=== PATIENT | female | born 1985 | race Caucasian/White ===

== ENCOUNTER 2016-12-14 15:17 | Emergency (ER) | payer MEDICAID, OTHER ==
[2016-12-14] MEDS ORDERED: 0.9 % SODIUM CHLORIDE 1,000 ML BAG IV ONE (16:03)
[2016-12-14 16:26] LABS: BASO % 0.8 % (0-6); EOS % 4.2 % (0-6); GRAN % 53.2 % (47-80); HEMATOCRIT 36.1 % (35.0-47.0); LYMPH % 32.6 % (16-45); MEAN CELL VOLUME 93.8 fl (81-97); MEAN CORPUSCULAR HEMOGLOBIN 31.2 pg (27-33); MEAN CORPUSCULAR HGB CONC 33.2 g/dl (32-36); MEAN PLATELET VOLUME 11.1 fl (7.4-10.4); MONO % 9.2 % (0-9); PLATELET COUNT 145 K/uL (130-400); RED BLOOD COUNT 3.85 M/uL (3.80-5.40); RED CELL DISTRIBUTION WIDTH 11.7 % (11.5-14.5); URINE APPEARANCE CLEAR; URINE BILIRUBIN NEGATIVE (NEGATIVE); URINE BLOOD NEGATIVE (NEGATIVE); URINE COLOR YELLOW; URINE GLUCOSE (UA) NEGATIVE (NEGATIVE); URINE KETONE NEGATIVE (NEGATIVE); URINE LEUKOCYTE ESTERASE NEGATIVE (NEGATIVE); URINE NITRITE NEGATIVE (NEGATIVE); URINE PROTEIN NEGATIVE (NEGATIVE); URINE UROBILINOGEN 0.2 E.U./dL (0.20 - 1.00); WHITE BLOOD COUNT W/O DIFF 5.2 K/uL (4.2-12.2)
--- NOTE | 2016-12-14 16:33 | Emergency Department Record ---
History of Present Illness - General Source: Patient Mode of Arrival: Ambulatory Limitations: No limitations - History of Present Illness Initial Comments: pt has rlq ap. she stated she was pushing a couch a week ago and felt a pop in lower abd. pt thought she felt a bulge as well. she has had increased pain ever since MD Complaint: Abdominal pain Onset/Timin -: Week(s) Location: LLQ, RLQ Radiation: None Migration to: No migration Quality: Burning Consistency: Constant Improves With: Nothing Worsens With: Movement Associated Symptoms: Nausea, Vomiting - Related Data Patient : No <Francesca Beltran - Last Filed: 12/14/16 18:00> <Catracho Lofton - Last Filed: 12/14/16 19:30> - General Chief Complaint: Abdominal Pain Stated Complaint: LOW ABD PAIN Time Seen by Provider: 12/14/16 15:54 - Related Data Home Medications Medication Instructions Recorded Confirmed Last Taken Pregabalin [Lyrica] 75 mg PO BID 12/14/16 12/14/16 Unknown Allergies Allergy/AdvReac Type Severity Reaction Status Date / Time codeine Allergy NAUSEA AND Verified 12/14/16 15:33 VOMITING ketorolac tromethamine Allergy HIVES Verified 12/14/16 15:33 [From Toradol] Penicillins Allergy RASH Verified 12/14/16 15:33 Travel Screening - Travel/Exposure Within Last 30 Days Have you traveled within the last 30 days?: No <Francesca Beltran - Last Filed: 12/14/16 18:00> Review of Systems Reviewed: No additional complaints except as noted below Constitutional: Reports: As per HPI. Denies: Chills, Fever, Malaise, Night sweats, Weakness, Weight change Eyes: Reports: As per HPI. Denies: Eye discharge, Eye pain, Photophobia, Vision change ENT: Reports: As per HPI. Denies: Congestion, Dental pain, Ear pain, Epistaxis , Hearing loss, Throat pain Respiratory: Reports: As per HPI. Denies: Cough, Dyspnea, Hemoptysis, Stridor, Wheezes Cardiovascular: Reports: As per HPI. Denies: Arrhythmia, Chest pain, Dyspnea on exertion, Edema, Murmurs, Orthopnea, Palpitations, Paroxysmal nocturnal dyspnea, Rheumatic Fever, Syncope Endocrine: Reports: As per HPI. Denies: Fatigue, Heat or cold intolerance, Polydipsia, Polyuria Gastrointestinal: Reports: As per HPI. Denies: Abdominal pain, Constipation, Diarrhea, Hematemesis, Hematochezia, Melena, Nausea, Vomiting Genitourinary: Reports: As per HPI. Denies: Abnormal menses, Discharge, Dyspareunia, Dysuria, Frequency, Hematuria, Incontinence, Retention, Urgency Musculoskeletal: Reports: As per HPI. Denies: Arthralgia, Back pain, Gout, Joint swelling, Myalgia, Neck pain Skin: Reports: As per HPI. Denies: Bruising, Change in color, Change in hair/ nails, Lesions, Pruritus, Rash Neurological: Reports: As per HPI. Denies: Abnormal gait, Confusion, Headache, Numbness, Paresthesias, Seizure, Tingling, Tremors, Vertigo, Weakness Psychiatric: Reports: As per HPI. Denies: Anxiety, Auditory hallucinations, Depression, Homicidal thoughts, Suicidal thoughts, Visual hallucinations Hematological/Lymphatic: Reports: As per HPI. Denies: Anemia, Blood Clots, Easy bleeding, Easy bruising, Swollen glands <Francesca Beltran - Last Filed: 12/14/16 18:00> Past Medical History - SOCIAL HISTORY Smoking Status: Former smoker Alcohol Use: None Drug Use: None - RESPIRATORY Hx Respiratory Disorders: Yes Hx Asthma: Yes - CARDIOVASCULAR Hx Cardio Disorders: No - NEURO Hx Neuro Disorders: No - GI Hx GI Disorders: No - Hx Genitourinary Disorders: Yes Comment:: endometriosis - ENDOCRINE Hx Endocrine Disorders: No Hx Diabetes: No Hx Thyroid Disease: No - MUSCULOSKELETAL Hx Musculoskeletal Disorders: No - PSYCH Hx Psych Problems: No - HEMATOLOGY/ONCOLOGY Hx Hematology/Oncology Disorders: Yes Hx Cancer: Yes (cancerous cells in uterus) <Francesca Beltran - Last Filed: 12/14/16 18:00> Family Medical History Any Significant Family History?: Yes Hx Cancer: Mother <Francesca Beltran - Last Filed: 12/14/16 18:00> Physical Exam - General General Appearance: Alert, Oriented x3, Cooperative, Mild distress - Head Head exam: Normal inspection - Eye Eye exam: Normal appearance, PERRL, EOMI Pupils: Normal accommodation - ENT ENT exam: Normal exam, Mucous membranes moist, Normal external ear exam, Normal orophraynx, TM's normal bilaterally Ear exam: Normal external inspection. negative: External canal tenderness Nasal Exam: Normal inspection. negative: Discharge, Sinus tenderness Mouth exam: Normal external inspection, Tongue normal Teeth exam: Normal inspection. negative: Dental caries Throat exam: Normal inspection. negative: Tonsillar erythema, Tonsillar exudate - Neck Neck exam: Normal inspection, Full ROM. negative: Tenderness - Respiratory Respiratory exam: Normal lung sounds bilaterally. negative: Respiratory distress - Cardiovascular Cardiovascular Exam: Regular rate, Normal rhythm, Normal heart sounds - GI/Abdominal GI/Abdominal exam: Soft, Normal bowel sounds, Tenderness - Rectal Rectal exam: Deferred - exam: Deferred - Extremities Extremities exam: Normal inspection, Full ROM, Normal capillary refill. negative: Tenderness - Back Back exam: Reports: Normal inspection, Full ROM. Denies: Muscle spasm, Rash noted, Tenderness - Neurological Neurological exam: Alert, CN II-XII intact, Normal gait, Oriented X3 - Psychiatric Psychiatric exam: Normal affect, Normal mood - Skin Skin exam: Dry, Intact, Normal color, Warm <Francesca Beltran - Last Filed: 12/14/16 18:00> Course Vital Signs 12/14/16 15:28 Temperature 98.6 F Pulse Rate 77 Respiratory 20 Rate Blood Pressure 121/60 Pulse Ox 100 - Reevaluation(s) Reevaluation #1: 12/14/16 17:[address] over to [address] lofton <Francesca Beltran - Last Filed: 12/14/16 18:00> Vital Signs 12/14/16 12/14/16 12/14/16 15:28 17:19 19:05 Temperature 98.6 F 97.8 F Pulse Rate 77 Pulse Rate [ 68 73 Pulse Ox Probe] Respiratory 20 16 18 Rate Blood Pressure 121/60 Blood Pressure 118/76 122/69 [Right Arm] Pulse Ox 100 98 - Reevaluation(s) Reevaluation #2: The patient is doing very well at this time. She is resting comfortably with no discomfort and is dressed and ready for home. I did explain to her the CT was normal and the patient is instructed to see her PCP next week for recheck. 12/14/16 19:29 <Catracho Lofton - Last Filed: 12/14/16 19:30> Medical Decision Making - Lab Data Result diagrams: 12/14/16 16:22 12/14/16 16:22 Lab Results 12/14/16 Range/Units 16:22 WBC 5.2 (4.2-12.2) K/uL RBC 3.85 (3.80-5.40) M/uL Hgb 12.0 (11.6-16.0) gm/dl Hct 36.1 (35.0-47.0) % MCV 93.8 (81-97) fl MCH 31.2 (27-33) pg MCHC 33.2 (32-36) g/dl RDW 11.7 (11.5-14.5) % Plt Count 145 (130-400) K/uL MPV 11.1 H (7.4-10.4) fl Gran % 53.2 (47-80) % Lymphocytes % 32.6 (16-45) % Monocytes % 9.2 H (0-9) % Eosinophils % 4.2 (0-6) % Basophils % 0.8 (0-6) % <Francesca Beltran - Last Filed: 12/14/16 18:00> - Data Complexity MDM Data: X-Ray Ordered and/or Reviewed - Lab Data Result diagrams: 12/14/16 16:22 12/14/16 16:22 Lab Results 12/14/16 12/14/16 12/14/16 Range/Units 16:22 16:22 16:22 WBC 5.2 (4.2-12.2) K/uL RBC 3.85 (3.80-5.40) M/uL Hgb 12.0 (11.6-16.0) gm/dl Hct 36.1 (35.0-47.0) % MCV 93.8 (81-97) fl MCH 31.2 (27-33) pg MCHC 33.2 (32-36) g/dl RDW 11.7 (11.5-14.5) % Plt Count 145 (130-400) K/uL MPV 11.1 H (7.4-10.4) fl Gran % 53.2 (47-80) % Lymphocytes % 32.6 (16-45) % Monocytes % 9.2 H (0-9) % Eosinophils % 4.2 (0-6) % Basophils % 0.8 (0-6) % Sodium 139 (136-145) mmol/L Potassium 3.4 L (3.5-5.1) mmol/L Chloride 108 H (98-107) mmol/L Carbon Dioxide 25.2 (22-30) mmol/L Anion Gap 5.8 L (7-16) BUN 5 L (7-17) mg/dL Creatinine 0.7 (0.52-1.04) mg/dL Estimated GFR > 60 ml/min Random Glucose 89 (70-110) mg/dL Calcium 9.0 (8.5-10.1) mg/dL Urine Color Yellow Urine Appearance Clear Urine pH 6.0 (5.0-8.0) Ur Specific [place] 1.025 (1.002-1.030) Urine Protein Negative (NEGATIVE) Urine Glucose (UA) Negative (NEGATIVE) Urine Ketones Negative (NEGATIVE) Urine Blood Negative (NEGATIVE) Urine Nitrite Negative (NEGATIVE) Urine Bilirubin Negative (NEGATIVE) Urine Urobilinogen 0.2 (0.20 - 1.00) E.U./dL Ur Leukocyte Esterase Negative (NEGATIVE) - Radiology Data Radiology results: Report reviewed (Abd CT: Neg.) <Catracho Lofton - Last Filed: 12/14/16 19:30> Disposition <Francesca Beltran - Last Filed: 12/14/16 18:00> Disposition: Discharge Time of Disposition: 19:29 <Catracho Lofton - Last Filed: 12/14/16 19:30> Clinical Impression: RLQ abdominal pain Disposition: Home, Self-Care Condition: (2) Stable Instructions: Abdominal Pain (ED) Additional Instructions: Please take Tylenol or Motrin for pain. Rest with no heavy lifting for 3 days. Please see your PCP if not better in 3 days and return to the ER if worse.
[2016-12-14 16:39] LABS: ANION GAP 5.8 (7-16); BLOOD UREA NITROGEN 5 mg/dL (7-17); CARBON DIOXIDE 25.2 mmol/L (22-30); CREATININE 0.7 mg/dL (0.52-1.04); EST GLOMERULAR FILTRATION RATE > 60 ml/min; GLUCOSE,RANDOM 89 mg/dL (70-110)
[2016-12-14] MEDS ORDERED: HYDROMORPHONE HCL 1 MG/ML CPJ IVP ONE ×2 (16:42→17:54)
[2016-12-14] MEDS ORDERED: ONDANSETRON HCL IV 4 MG/2 ML VIAL IVP ONE (17:54)
--- NOTE | 2016-12-15 12:04 | CT SCAN REPORT ---
DATE: 12/15/2016. EXAM: CT SCAN OF THE ABDOMEN AND PELVIS WITH CONTRAST. HISTORY: Low abdominal pain. TECHNIQUE: Sequential axial images were obtained from the diaphragms to the ischiorectal fossa after intravenous and oral administration of 100 cc of Omnipaque 300 contrast material. FINDINGS: The liver appears normal. The gallbladder has been surgically removed. The pancreas and spleen appear normal. The adrenal glands and kidneys appear normal. The small bowel appears normal. The appendix is visualized and appears normal. The urinary bladder appears normal. The colon appears normal. There is a small amount of free fluid in the cul de sac. The osseus structures are normal. IMPRESSION: NO ACUTE ABDOMINAL OR PELVIC DISEASE PROCESS IS APPRECIATED. JOB NUMBER: [id number] MTDD
== END 2016-12-14 19:51 | disposition home or self-care (01) ==
LOC: ER 15:17
DX: R10.31 Right lower quadrant pain (principal); R11.2 Nausea with vomiting, unspecified
CPT/HCPCS: 99284 ×2; 96376; 96374; 85025; 80048; 81003; 74177; Q9967; J2405; J1170; J7030

== ENCOUNTER 2017-07-24 19:02 | Emergency (ER) | payer MEDICAID | END 2017-07-24 20:18 | disposition left against medical advice (07) | LOC: ER 19:02 | DX: Z53.20 Procedure and treatment not carried out because of patient's decision for unspecified reasons (principal) ==

== ENCOUNTER 2017-09-16 20:06 | Emergency (ER) | payer MEDICAID ==
[2017-09-16 20:55] LABS: BASO % 0.5 % (0-6); EOS % 3.9 % (0-6); GRAN % 51.1 % (47-80); HEMATOCRIT 41.1 % (35.0-47.0); HEMOGLOBIN 13.6 gm/dl (11.6-16.0); LYMPH % 36.1 % (16-45); MEAN CORPUSCULAR HEMOGLOBIN 30.8 pg (27-33); MEAN CORPUSCULAR HGB CONC 33.1 g/dl (32-36); MEAN PLATELET VOLUME 11.1 fl (7.4-10.4); MONO % 8.4 % (0-9); PLATELET COUNT 147 K/uL (130-400); RED BLOOD COUNT 4.42 M/uL (3.80-5.40); RED CELL DISTRIBUTION WIDTH 11.6 % (11.5-14.5)
[2017-09-16 20:58] LABS: URINE APPEARANCE CLEAR; URINE BILIRUBIN NEGATIVE (NEGATIVE); URINE BLOOD NEGATIVE (NEGATIVE); URINE COLOR YELLOW; URINE GLUCOSE (UA) NEGATIVE (NEGATIVE); URINE KETONE NEGATIVE (NEGATIVE); URINE LEUKOCYTE ESTERASE NEGATIVE (NEGATIVE); URINE NITRITE NEGATIVE (NEGATIVE); URINE PROTEIN NEGATIVE (NEGATIVE); URINE UROBILINOGEN 0.2 E.U./dL (0.20 - 1.00)
[2017-09-16] MEDS ORDERED: HYDROMORPHONE HCL 2 MG/ML VIAL IVP ONE (21:01)
[2017-09-16] MEDS ORDERED: PROMETHAZINE HCL 12.5 MG in 0.9 % SODIUM CHLORIDE 100ML 100 ML IVPB ONE (21:01)
[2017-09-16 21:10] LABS: BLOOD UREA NITROGEN 7 mg/dL (6-20); CREATININE 0.6 mg/dL (0.5-0.9); EST GLOMERULAR FILTRATION RATE > 60 mL/min; GLUCOSE,RANDOM 96 mg/dL (74-109)
--- NOTE | 2017-09-16 22:23 | Emergency Department Record ---
History of Present Illness - General Chief Complaint: Abdominal Pain Stated Complaint: LOWER ABDOMINAL PAIN,SPOTTING Time Seen by Provider: 09/16/17 20:54 Source: Patient Mode of Arrival: Ambulatory Limitations: No limitations - History of Present Illness Initial Comments: pt has suprapubic pain. pt has had a hysterectomy. MD Complaint: Abdominal pain Onset/Timin -: Hour(s) Location: Suprapubic Severity scale (1-10): 9 Quality: Fullness Consistency: Constant Improves With: Nothing Associated Symptoms: Nausea, Vomiting - Related Data Patient : No Allergies Allergy/AdvReac Type Severity Reaction Status Date / Time codeine Allergy NAUSEA AND Verified 12/14/16 15:33 VOMITING ketorolac tromethamine Allergy HIVES Verified 12/14/16 15:33 [From Toradol] morphine Allergy HIVES Verified 09/16/17 20:15 Penicillins Allergy RASH Verified 12/14/16 15:33 Travel Screening - Travel/Exposure Within Last 30 Days Have you traveled within the last 30 days?: No Review of Systems Reviewed: No additional complaints except as noted below Constitutional: Reports: As per HPI. Denies: Chills, Fever, Malaise, Night sweats, Weakness, Weight change Eyes: Reports: As per HPI. Denies: Eye discharge, Eye pain, Photophobia, Vision change ENT: Reports: As per HPI. Denies: Congestion, Dental pain, Ear pain, Epistaxis , Hearing loss, Throat pain Respiratory: Reports: As per HPI. Denies: Cough, Dyspnea, Hemoptysis, Stridor, Wheezes Cardiovascular: Reports: As per HPI. Denies: Arrhythmia, Chest pain, Dyspnea on exertion, Edema, Murmurs, Orthopnea, Palpitations, Paroxysmal nocturnal dyspnea, Rheumatic Fever, Syncope Endocrine: Reports: As per HPI. Denies: Fatigue, Heat or cold intolerance, Polydipsia, Polyuria Gastrointestinal: Reports: As per HPI, Abdominal pain. Denies: Constipation, Diarrhea, Hematemesis, Hematochezia, Melena, Nausea, Vomiting Genitourinary: Reports: As per HPI. Denies: Abnormal menses, Discharge, Dyspareunia, Dysuria, Frequency, Hematuria, Incontinence, Retention, Urgency Musculoskeletal: Reports: As per HPI. Denies: Arthralgia, Back pain, Gout, Joint swelling, Myalgia, Neck pain Skin: Reports: As per HPI. Denies: Bruising, Change in color, Change in hair/ nails, Lesions, Pruritus, Rash Neurological: Reports: As per HPI. Denies: Abnormal gait, Confusion, Headache, Numbness, Paresthesias, Seizure, Tingling, Tremors, Vertigo, Weakness Psychiatric: Reports: As per HPI. Denies: Anxiety, Auditory hallucinations, Depression, Homicidal thoughts, Suicidal thoughts, Visual hallucinations Hematological/Lymphatic: Reports: As per HPI. Denies: Anemia, Blood Clots, Easy bleeding, Easy bruising, Swollen glands Past Medical History - SOCIAL HISTORY Smoking Status: Current every day smoker Alcohol Use: None Drug Use: None - RESPIRATORY Hx Respiratory Disorders: Yes Hx Asthma: Yes - CARDIOVASCULAR Hx Cardio Disorders: No - NEURO Hx Neuro Disorders: No - GI Hx GI Disorders: No - Hx Genitourinary Disorders: Yes Comment:: endometriosis - ENDOCRINE Hx Endocrine Disorders: No Hx Diabetes: No Hx Thyroid Disease: No - MUSCULOSKELETAL Hx Musculoskeletal Disorders: Yes Comment:: fibromyalgia - PSYCH Hx Psych Problems: No - HEMATOLOGY/ONCOLOGY Hx Hematology/Oncology Disorders: Yes Hx Cancer: Yes (cancerous cells in uterus) Family Medical History Any Significant Family History?: Yes Hx Cancer: Mother Physical Exam - General General Appearance: Alert, Oriented x3, Cooperative, Mild distress - Head Head exam: Normal inspection - Eye Eye exam: Normal appearance, PERRL, EOMI Pupils: Normal accommodation - ENT ENT exam: Normal exam, Mucous membranes moist, Normal external ear exam, Normal orophraynx Ear exam: Normal external inspection. negative: External canal tenderness Nasal Exam: Normal inspection. negative: Discharge, Sinus tenderness Mouth exam: Normal external inspection, Tongue normal Teeth exam: Normal inspection. negative: Dental caries Throat exam: Normal inspection. negative: Tonsillar erythema, Tonsillar exudate - Neck Neck exam: Normal inspection, Full ROM. negative: Tenderness - Respiratory Respiratory exam: Normal lung sounds bilaterally. negative: Respiratory distress - Cardiovascular Cardiovascular Exam: Regular rate, Normal rhythm, Normal heart sounds - GI/Abdominal GI/Abdominal exam: Soft, Normal bowel sounds, Tenderness - Rectal Rectal exam: Deferred - exam: Deferred - Extremities Extremities exam: Normal inspection, Full ROM, Normal capillary refill. negative: Tenderness - Back Back exam: Reports: Normal inspection, Full ROM. Denies: Muscle spasm, Rash noted, Tenderness - Neurological Neurological exam: Alert, CN II-XII intact, Normal gait, Oriented X3 - Psychiatric Psychiatric exam: Normal affect, Normal mood - Skin Skin exam: Dry, Intact, Normal color, Warm Course Vital Signs 09/16/17 09/16/17 20:14 22:02 Temperature 97.8 F 97.8 F Pulse Rate [ 82 70 Pulse Ox Probe] Respiratory 18 20 Rate Blood Pressure 124/74 109/62 [Left Arm] Pulse Ox 99 99 - Reevaluation(s) Reevaluation #1: 09/16/17 22:23 pt feels better Medical Decision Making - Lab Data Result diagrams: 09/16/17 20:30 09/16/17 20:30 Lab Results 09/16/17 09/16/17 09/16/17 Range/Units 20:30 20:30 20:59 WBC 6.0 (4.2-12.2) K/uL RBC 4.42 (3.80-5.40) M/uL Hgb 13.6 (11.6-16.0) gm/dl Hct 41.1 (35.0-47.0) % MCV 93.0 (81-97) fl MCH 30.8 (27-33) pg MCHC 33.1 (32-36) g/dl RDW 11.6 (11.5-14.5) % Plt Count 147 (130-400) K/uL MPV 11.1 H (7.4-10.4) fl Gran % 51.1 (47-80) % Lymphocytes % 36.1 (16-45) % Monocytes % 8.4 (0-9) % Eosinophils % 3.9 (0-6) % Basophils % 0.5 (0-6) % Sodium 140 (136-145) mmol/L Potassium 3.8 (3.4-4.5) mmol/L Chloride 102 (98-107) mmol/L Carbon Dioxide 26.0 (22-29) mmol/L Anion Gap 12.0 (7-16) BUN 7 (6-20) mg/dL Creatinine 0.6 (0.5-0.9) mg/dL Estimated GFR > 60 mL/min Random Glucose 96 (74-109) mg/dL Calcium 9.1 (8.6-10.0) mg/dL Urine Color Yellow Urine Appearance Clear Urine pH 6.5 (5.0-8.0) Ur Specific [place] 1.025 (1.002-1.030) Urine Protein Negative (NEGATIVE) Urine Glucose (UA) Negative (NEGATIVE) Urine Ketones Negative (NEGATIVE) Urine Blood Negative (NEGATIVE) Urine Nitrite Negative (NEGATIVE) Urine Bilirubin Negative (NEGATIVE) Urine Urobilinogen 0.2 (0.20 - 1.00) E.U./dL Ur Leukocyte Esterase Negative (NEGATIVE) Disposition Disposition: Discharge Clinical Impression: Abdominal pain Qualifiers: Abdominal location: lower abdomen, unspecified Qualified Code(s): R10.30 - Lower abdominal pain, unspecified Disposition: Home, Self-Care Condition: (1) Good Instructions: Abdominal Pain (ED) Additional Instructions: follow up with family doctor. return sooner if worse. Quality - Quality Measures Quality Measures: N/A - Blood Pressure Screening Does Patient Have Any of the Following: No Blood Pressure Classification: Normal BP Reading Systolic Measurement: 109 Diastolic Measurement: 62 Screening for High Blood Pressure: < Normal BP, F/U Not Required > [[id number]]
--- NOTE | 2017-09-18 08:42 | CT SCAN REPORT ---
EXAM: CT OF THE ABDOMEN AND PELVIS WITHOUT INTRAVENOUS CONTRAST HISTORY: LOWER ABDOMINAL PAIN AND SPOTTING. TECHNIQUE: The patient was scanned from the dome of the diaphragm through the symphysis pubis without intravenous contrast. FINDINGS: The lung bases and pleural spaces are clear. The liver is unremarkable. The gallbladder is surgically absent. The spleen and pancreas are normal. The adrenal glands and kidneys demonstrate no evidence of hydronephrosis, focal mass, or renal calculi. The bowel is unremarkable. The uterus is surgically absent. There is no evidence of inflammatory change or soft tissue mass. The bones of the abdomen and pelvis are unremarkable. The bladder is within normal limits. IMPRESSION: NO ACUTE INTRAABDOMINAL OR INTRAPELVIC PROCESS. JOB NUMBER: [id number] MTDD
== END 2017-09-16 22:28 | disposition home or self-care (01) ==
LOC: ER 20:06
DX: R10.30 Lower abdominal pain, unspecified (principal); R11.2 Nausea with vomiting, unspecified; F17.210 Nicotine dependence, cigarettes, uncomplicated
CPT/HCPCS: 99283 ×2; 85025; 80048; 81003; 74176; J1170; J2550